=== PATIENT | female | born 1985 | race Caucasian/White ===

== ENCOUNTER 2016-10-07 11:39 | Emergency (ER) | payer BC ==
[~2016-10-07] VITALS: Ht 170.2 cm; Wt 82.0 kg
[~2016-10-07 11:39] MED LIST: HYDR-3580 PO; NAPR550 PO; Z.0.BCPILL PO
[2016-10-07 11:43] VITALS: BP 143/99; PULSE 94; RESP 14; TEMP 98.1; O2SAT 100
--- NOTE | 2016-10-07 12:00 | PD ---
Physical Exam Time Seen by Provider: 11:58 Narrative G1 31 y/o female who is 6.5 weeks based on LMP presents with lightheadedness, nausea, paresthesias, sob at work today for one hour. Vital signs reviewed. Seen at triage desk. Awaiting bed placement. Data Data Last Documented VS Vital Signs Date Time Temp Pulse Resp B/P Pulse Ox O2 Delivery O2 Flow Rate FiO2 10/07/16 11:43 98.1 94 14 143/99 100 MDM Medical Record Reviewed: Yes Supervised Visit with DARSHANA: Andrea Zamora Oct 07, 2016 12:00
[2016-10-07 12:43] LABS: BASOPHIL % 0.4 % (0.0-2.0); HEMATOCRIT 40.1 % (35.0-46.0); HEMO FLAGS DIFF FINAL; LYMPH % 16.6 % (9.0-44.0); MEAN CELL VOLUME 80.8 FL (80.0-100.0); MEAN CORPUSCULAR HEMOGLOBIN 26.9 PG (27.0-34.0); MEAN CORPUSCULAR HGB CONC 33.3 % (32.0-36.0); MONO % 6.1 % (0.0-8.0); NEUT % 76.9 % (16.0-70.0); PLATELET COUNT 232 TH/MM3 (150-450); RED BLOOD COUNT 4.97 MIL/MM3 (4.00-5.30); WHITE BLOOD COUNT 11.7 TH/MM3 (4.0-11.0)
[2016-10-07 12:57] LABS: BACTERIA, URINE RARE /hpf; BLOOD, URINE NEG (NEG); COMMENT (UR) CULT NOT INDICATED; CULTURE IF INDICATED CULT NOT INDICATED; GLUCOSE,URINE NEG (NEG); KETONE, URINE NEG (NEG); MUCUS URINE FEW /lpf (OCC); NITRITE,URINE NEG (NEG); PH, URINE 6.5 (5.0-8.5); SQUAMOUS EPITHELIAL CELL URINE 2 /hpf (0-5); URINE COLOR YELLOW (YELLW/STRAW)
[2016-10-07] MEDS ORDERED: SODIUM CHLOR 0.9% 1000 ML INJ 1,000 ML IV ONE (13:15)
[2016-10-07 13:16] VITALS: BP 112/65; PULSE 63; RESP 16; TEMP 99.3; O2SAT 98
--- NOTE | 2016-10-07 13:16 | PD ---
HPI Chief Complaint: Syncope/Near-Syncope Time Seen by Provider: 13:03 Travel History International Travel<30 days: No Contact w/Intl Traveler<30days: No Traveled to known affect area: No History of Present Illness HPI This is a 31-year-old female who is 6 weeks by dates presents to the emergency department with lightheadedness, dizziness and some shortness of breath that started at work today. She says she felt tingling in her hands and her feet at the time. It Lasted for several minutes and then subsided. She hasn't been eating and drinking well during her because she is very nauseous. She hasn't taken anything for this. She denies any fevers or chills , denies any abdominal pain or vaginal bleeding and denies any chest discomfort or shortness of breath currently. She's not had any calf swelling or pain. PFSH Past Medical History ?: Social History Alcohol Use: Yes (occasionally) Tobacco Use: No Substance Use: No Allergies-Medications (Allergen,Severity, Reaction): Coded Allergies: No Known Allergies (Unverified , 10/07/16) Reported Meds & Prescriptions Reported Meds & Active Scripts Active Reported Dha (Docosahexaenoic Acid) 200 Mg Cap 1 Tab PO DAILY Review of Systems Except as stated in HPI: all other systems reviewed are Neg Physical Exam Narrative GENERAL:Well appearing, no acute distress SKIN: Focused skin assessment warm and dry. HEAD: Atraumatic. Normocephalic. EYES: Pupils equal and round. No injection or drainage. ENT: Moist mucous membranes NECK: Trachea midline. CARDIOVASCULAR: Regular rate and rhythm. No murmur appreciated. RESPIRATORY: Clear to auscultation. Breath sounds equal bilaterally. GASTROINTESTINAL: Abdomen soft, non-tender, nondistended. MUSCULOSKELETAL: No obvious deformities. No Homans sign bilaterally. NEUROLOGICAL: Awake and alert. No obvious cranial nerve deficits. Moving all extremities. PSYCHIATRIC: Appropriate mood and affect; insight and judgment normal. Data Data Last Documented VS Vital Signs Date Time Temp Pulse Resp B/P Pulse Ox O2 Delivery O2 Flow Rate FiO2 10/07/16 13:16 16 98 Room Air 10/07/16 13:16 99.3 63 112/65 Orders Electrocardiogram (10/07/16 12:00) Complete Blood Count With Diff (10/07/16 12:00) Comprehensive Metabolic Panel (10/07/16 12:00) Ed Urine Pregnancytest Poc (10/07/16 12:00) Urinalysis - C+S If Indicated (10/07/16 12:00) Ed Poc Ultrasound (10/07/16 ) Sodium Chlor 0.9% 1000 Ml Inj (Ns 1000 M (10/07/16 13:15) Ondansetron Odt (Zofran Odt) (10/07/16 13:45) Labs Laboratory Tests Test 10/07/16 10/07/16 12:18 12:23 White Blood Count 11.7 TH/MM3 Red Blood Count 4.97 MIL/MM3 Hemoglobin 13.4 GM/DL Hematocrit 40.1 % Mean Corpuscular Volume 80.8 FL Mean Corpuscular Hemoglobin 26.9 PG Mean Corpuscular Hemoglobin 33.3 % Concent Red Cell Distribution Width 14.0 % Platelet Count 232 TH/MM3 Mean Platelet Volume 9.6 FL Neutrophils (%) (Auto) 76.9 % Lymphocytes (%) (Auto) 16.6 % Monocytes (%) (Auto) 6.1 % Eosinophils (%) (Auto) 0.0 % Basophils (%) (Auto) 0.4 % Neutrophils # (Auto) 9.0 TH/MM3 Lymphocytes # (Auto) 2.0 TH/MM3 Monocytes # (Auto) 0.7 TH/MM3 Eosinophils # (Auto) 0.0 TH/MM3 Basophils # (Auto) 0.0 TH/MM3 CBC Comment DIFF FINAL Differential Comment Sodium Level 137 MEQ/L Potassium Level 3.3 MEQ/L Chloride Level 102 MEQ/L Carbon Dioxide Level 25.8 MEQ/L Anion Gap 9 MEQ/L Blood Urea Nitrogen 7 MG/DL Creatinine 0.73 MG/DL Estimat Glomerular Filtration 93 ML/MIN Rate Random Glucose 87 MG/DL Calcium Level 9.2 MG/DL Total Bilirubin 0.8 MG/DL Aspartate Amino Transf 32 U/L (AST/SGOT) Alanine Aminotransferase 75 U/L (ALT/SGPT) Alkaline Phosphatase 75 U/L Total Protein 7.9 GM/DL Albumin 4.1 GM/DL Urine Color YELLOW Urine Turbidity CLEAR Urine pH 6.5 Urine Specific [place] 1.019 Urine Protein TRACE mg/dL Urine Glucose (UA) NEG mg/dL Urine Ketones NEG mg/dL Urine Occult Blood NEG Urine Nitrite NEG Urine Bilirubin NEG Urine Urobilinogen LESS THAN 2.0 MG/DL Urine Leukocyte Esterase NEG Urine RBC 1 /hpf Urine WBC 1 /hpf Urine Squamous Epithelial 2 /hpf Cells Urine Bacteria RARE /hpf Urine Mucus FEW /lpf Microscopic Urinalysis Comment CULT NOT INDICATED MDM Medical Decision Making Medical Screen Exam Complete: Yes Emergency Medical Condition: Yes Interpretation(s) Afebrile, heart rate is 94, mild hypertension Mild leukocytosis Mild hypokalemia Urinalysis: No infection EKG: Normal sinus rhythm with no ST changes Differential Diagnosis Arrhythmia, anemia, electrolyte abnormality, dehydration, pulmonary embolism Narrative Course This is a 31-year-old female who is 6 weeks who presents to the emergency department having felt lightheaded and dizzy earlier this morning. Symptoms have resolved. She is given Zofran here in the emergency department and drinking Gatorade without difficulty. She is a normal physical exam. Vital signs are reassuring with no hypoxia. Labs are reassuring and urinalysis is negative for infection or ketones. EKG is normal without arrhythmia. I did perform a bedside ultrasound which demonstrates yolk sac consistent with intrauterine . I suspect the patient's symptoms are in the setting of some mild dehydration due to poor oral intake in the setting of nausea in early . She will be discharged with Unisom and B-6. I did discuss with her the consideration of pulmonary embolism. She has no calf pain, is not hypoxic and not significantly tachycardic. She doesn't have any pleuritic chest pain. My suspicion is low and at this time I think the risk of testing outweighs the benefits however I told her if she develops new symptoms she should return to the emergency room. Procedures Procedure Narrative Ultrasound: Gestational sac visualized with yolk sac intrauterine Diagnosis Primary Impression: Nausea/vomiting in Patient Instructions: General Instructions Additional Instructions: If you develop severe or worsening abdominal pain, fever>100.4, persistent vomiting or inability to eat or drink return to the emergency department immediately. Follow up with your primary care physician in 2-3 days if your symptoms aren't improved. Med/Other Pt SpecificInfo: Prescription(s) given Scripts Doxylamine Succinate (Unisom Sleep Aid)25 Mg Tablet0.5 Tab PO HS PRN (NAUSEA) # 15 Prov:Daksha Sanches MD 10/07/16 Pyridoxine 25 Mg Tab25 Mg PO Q8HR PRN (NAUSEA) #20 TAB Ref 0 Prov:Daksha Sanches MD 10/07/16 Disposition: 01 DISCHARGE HOME Condition: Stable Daksha Sanches MD Oct 07, 2016 13:16
[2016-10-07] MEDS ORDERED: DOCO200C PO (13:25)
[2016-10-07 13:34] LABS: ANION GAP 9 MEQ/L (5-15); AST (GOT) 32 U/L (15-37); BICARBONATE 25.8 MEQ/L (21.0-32.0); BLOOD UREA NITROGEN 7 MG/DL (7-18); CHLORIDE 102 MEQ/L (98-107); GLOMERULAR FILTRATION RATE 93 ML/MIN (>89); POTASSIUM 3.3 MEQ/L (3.5-5.1); SODIUM (NA) 137 MEQ/L (136-145)
[2016-10-07 13:35] LABS: ALT (GPT) 75 U/L (10-53)
[2016-10-07 13:37] LABS: ALKALINE PHOSPHATASE 75 U/L (45-117); TOTAL BILIRUBIN ADULT 0.8 MG/DL (0.2-1.0)
[2016-10-07] MEDS ORDERED: ONDANSETRON ODT 4 MG TAB PO ONE (13:45)
[2016-10-07] MEDS ORDERED: UNIS25TA3 PO (14:00)
[2016-10-07] MEDS ORDERED: PYRI25TA2 PO (14:00)
--- NOTE | 2016-10-08 21:18 | EKG ---
Date Performed: 10/07/2016 Time Performed: 12:10:48 PTAGE: 31 years EKG: Sinus rhythm NORMAL ECG NO PREVIOUS TRACING DOCTOR: Ana Lilia Fraser Interpretating Date/Time 10/08/2016 21:14:08
== END 2016-10-07 14:32 | disposition home or self-care (01) ==
LOC: NEPD 11:39
DX: O21.9 Vomiting of pregnancy, unspecified (principal); Z3A.01 Less than 8 weeks gestation of pregnancy
CPT/HCPCS: 80053; 81001; 85025; 93005

== ENCOUNTER 2017-03-12 14:29 | Emergency (ER) | payer BC ==
[2017-03-12] VITALS (9 sets, daily range): BP systolic 114–125; BP diastolic 73–85; PULSE 90–104; RESP 17
[~2017-03-12 14:29] MED LIST changes: +DOCO200C PO; -HYDR-3580 PO; -NAPR550 PO; +PYRI25TA2 PO; +UNIS25TA3 PO; -Z.0.BCPILL PO
--- NOTE | 2017-03-12 15:53 | PD ---
HPI Chief Complaint Shortness of breath, fast heart rate, possibly elevated blood pressure Date Seen: Mar 12, 2017 Time Seen: 15:30 Travel History International Travel<30 Days: No Contact w/Intl Traveler<30Days: No Known Affected Area: No History of Present Illness HPI Patient is a 31-year-old at 20 weeks and 5 days who presents with shortness of breath, fast heart rate, possibly elevated blood pressure. She reports that the symptoms started on Friday with shortness of breath and tachycardia. She had the symptoms again on Friday. Friday she did not feel anything. This afternoon, she felt these symptoms again around 12:30. She says she felt like her heart was coming out of her chest and she could feel her pulse in her head. She works in a dentist's office. When she reported symptoms, they took her blood pressure and noticed that it was 138/110, then 137/106, with a pulse of 112. She thinks that her worry about her sister's previous pregnancies with preeclampsia may have elevated her blood pressure and pulse. The only other time she felt like this was at the beginning of her when she had a lot of nausea and vomiting and became dehydrated. History Past Medical History Medical History: Denies Significant Hx Obstetric History Obstetric History This is her first . It has been uncomplicated so far. Past Surgical History Surgical History: No Previous Surgery Family History Narrative Family History Patient's sister had preeclampsia in both of her previous pregnancies. Social History Narrative Social History Patient lives at home with her . Alcohol Use: No Tobacco Use: No Substance Abuse: No Allergies-Medications (Allergen,Severity, Reaction): Coded Allergies: No Known Allergies (Unverified , 10/07/16) Home Meds Active Scripts Doxylamine Succinate (Unisom Sleep Aid) 25 Mg Tablet, 0.5 TAB PO HS Y for NAUSEA , #15 Prov:Daksha Sanches MD 10/07/16 Pyridoxine (Pyridoxine) 25 Mg Tab, 25 MG PO Q8HR Y for NAUSEA, #20 TAB 0 Refills Prov:Daksha Sanches MD 10/07/16 Reported Medications Docosahexaenoic Acid ( Dha) 200 Mg Cap, 1 TAB PO DAILY 10/07/16 Review of Systems General / Constitutional: No: Fever, Chills Eyes: No: Visual changes HENT: No: Headaches Cardiovascular: Tachycardia, No: Chest Pain or Discomfort Respiratory: Short of Breath Gastrointestinal: No: Nausea, Vomiting, Abdominal Pain Genitourinary: No: Dysuria Physical Exam Pulse 105-119, blood pressure 135/85, 118/80, 125 over 80s Narrative GENERAL: Well-nourished, well-developed patient. SKIN: Warm and dry. HEAD: Normocephalic and atraumatic. EYES: No scleral icterus. No injection or drainage. ENT: No nasal drainage noted. Mucous membranes pink. Airway patent. NECK: Supple, trachea midline. No JVD. CARDIOVASCULAR: Regular rate and rhythm without murmurs, gallops, or rubs. RESPIRATORY: Breath sounds equal bilaterally. No accessory muscle use. ABDOMEN/GI: Abdomen soft, non-tender, bowel sounds present, no rebound, no guarding Gravid to 28 weeks size FHT's: Category: Category 1 Baseline: 150 Reactive: Reactive Variability: Moderate Decels: None EXTREMITIES: No cyanosis or edema. BACK: Nontender without obvious deformity. No CVA tenderness. NEUROLOGICAL: Awake and alert. Motor and sensory grossly within normal limits. Five out of 5 muscle strength in all muscle groups. Normal speech. Data Data Vital Signs Reviewed: Yes Orders Orders Vital Signs (Adult) .ON ADMISSION (03/12/17 15:37) ^ Labor Status (03/12/17 15:37) ^ Non Stress Test (03/12/17 15:37) ^ Hydration (03/12/17 15:37) Electrocardiogram (03/12/17 ) MDM Plan Patient is a 31-year-old at 20 weeks and 5 days who presents with shortness of breath, fast heart rate, possibly elevated blood pressure. She is currently asymptomatic and normotensive. 1. Shortness of breath, tachycardia, elevated blood pressure, HPI consistent with anxiety -EKG to ensure no arrhythmia -plan to discharge home -Serial blood pressures all normotensive -Currently asymptomatic and she declined medication for any of her symptoms -Monitor vitals -Monitor heart tracing -Monitor labor status/tocometry -Encourage by mouth hydration d/w Dr. Jovel Addendum: EKG showed sinus tachycardia with T-wave inversions in leads III, V1 and V2. No signs of arrhythmia. Plan to discharge home. Diagnosis Diagnosis: Primary Impression: SOB (shortness of breath) Additional Impression: Tachycardia Ruled Out: Preeclampsia Disposition: 01 DISCHARGE HOME Condition: Good James Candelario MD R2 Mar 12, 2017 15:53
--- NOTE | 2017-03-12 16:49 | EKG ---
Date Performed: 03/12/2017 Time Performed: 16:01:02 PTAGE: 31 years EKG: SINUS TACHYCARDIA NONSPECIFIC T-WAVE ABNORMALITY ABNORMAL RHYTHM ECG Compared to prior elec trocardiogram, rate has increased and Nonspecific T wave changes are now present . PREVIOUS TRACING : 10/07/2016 12.10 DOCTOR: Tres Martins Interpretating Date/Time 03/12/2017 16:49:03
== END 2017-03-12 16:45 | disposition home or self-care (01) ==
LOC: HOBED 14:29
DX: O26.892 Other specified pregnancy related conditions, second trimester (principal); R06.02 Shortness of breath; R00.0 Tachycardia, unspecified; Z3A.20 20 weeks gestation of pregnancy
CPT/HCPCS: 93005; 99284

== ENCOUNTER 2017-05-13 03:44 | Inpatient (IN) | payer BC ==
[2017-05-13] VITALS (55 sets, daily range): BP systolic 98–145; BP diastolic 48–103; PULSE 65–127; RESP 16–24; TEMP 98.1–99.7; O2SAT 96
[~2017-05-13] VITALS: Ht 162.6 cm; Wt 83.0 kg
[2017-05-13] MEDS ORDERED: OXYTOCIN 30 UNITS-500ML PREMIX 500 ML IV ONE (04:15)
[2017-05-13] MEDS ORDERED: CITRIC ACID-SODIUM CITRATE LIQ 30 ML UDC PO SCH (04:15)
[2017-05-13] MEDS ORDERED: LIDOCAINE HCL 1% 50 ML VIAL INFIL PRN (04:15)
[2017-05-13] MEDS ORDERED: ONDANSETRON HCL 4 MG/2 ML VIAL IV PUSH PRN (04:15)
[2017-05-13] MEDS ORDERED: LIDOCAINE HCL 1% 50 ML VIAL I-DERMAL PRN (04:15)
[2017-05-13] MEDS ORDERED: LACTATED RINGER'S 1000 ML INJ 1,000 ML IV PRN (04:15)
[2017-05-13] MEDS ORDERED: MINERAL OIL 10 ML VIAL TOPICAL PRN (04:15)
[2017-05-13] MEDS ORDERED: SODIUM CHLORID 0.9% 500 ML INJ 500 ML IV PRN (04:15)
[2017-05-13] MEDS: LACTATED RINGER'S 1000 ML INJ 1,000 ML IV SCH ×2 (04:15→06:27)
--- NOTE | 2017-05-13 04:15 | HHI.HP ---
HPI Chief Complaint water is leaking Date Seen: May 13, 2017 Time Seen: 04:00 Travel History International Travel<30 Days: No Contact w/Intl Traveler<30Days: No Known Affected Area: No History of Present Illness HPI Patient is a 32-year-old white female at 37-[address] Hernandez who presents with spontaneous rupture the membranes, amnio sure is positive, not really nkechi much she's had a few contractions but she doesn 't describe any pain to speak of. Baby is active heart rate tracing is reactive and the only minimal uterine irritability seen Weeks Gestation: 37 Para: 0 : 1 History Social History Alcohol Use: No Tobacco Use: No Substance Abuse: No Allergies-Medications (Allergen,Severity, Reaction): Coded Allergies: No Known Allergies (Unverified , 10/07/16) Home Meds Active Scripts Doxylamine Succinate (Unisom Sleep Aid) 25 Mg Tablet, 0.5 TAB PO HS Y for NAUSEA , #15 Prov:Daksha Sanches MD 10/07/16 Pyridoxine (Pyridoxine) 25 Mg Tab, 25 MG PO Q8HR Y for NAUSEA, #20 TAB 0 Refills Prov:Daksha Sanches MD 10/07/16 Reported Medications Docosahexaenoic Acid ( Dha) 200 Mg Cap, 1 TAB PO DAILY 10/07/16 Review of Systems General / Constitutional: No: Fever, Weight Gain, Chills, Other Eyes: No: Diploplia, Blurred Vision, Visual changes, Pain, Photophobia HENT: No: Headaches, Vertigo, Lightheadedness Cardiovascular: No: Irregular Rhythm, Chest Pain or Discomfort, Palpitations, Tachycardia, Syncope, Varicosities, Edema, Cyanosis Respiratory: No: Cough, Short of Breath, Other Gastrointestinal: No: Nausea, Vomiting, Diarrhea Genitourinary: No: Decreased Urinary Output, Oliguria Musculoskeletal: No: Limited ROM, Weakness, Cramping, Edema, Pain Skin: No Rash, No Itching, No Dryness, No Lumps, No Change in Pigmentation, No Change in Nails, No Alopecia, No Lesions Neurologic: No: Weakness, Dizziness, Syncope, Focal Abnormalities, Coordination Problem, Headache, Slurred Speech, Seizures Psychiatric: No: Depression, Suicidal Ideations, Homicidal Ideation Endocrine: No: Heat Intolerance, Cold Intolerance, Polydipsia, Polyuria, Other Physical Exam Narrative GENERAL: Well-nourished, well-developed patient. SKIN: Warm and dry. HEAD: Normocephalic and atraumatic. EYES: No scleral icterus. No injection or drainage. ENT: No nasal drainage noted. Mucous membranes pink. Airway patent. NECK: Supple, trachea midline. No JVD. CARDIOVASCULAR: Regular rate and rhythm without murmurs, gallops, or rubs. RESPIRATORY: Breath sounds equal bilaterally. No accessory muscle use. BREASTS: Bilateral exam showed no masses , no retractions, no nipple discharge. ABDOMEN/GI: Abdomen soft, non-tender, bowel sounds present, no rebound, no guarding Gravid to [37-] weeks size Fundal Height: [-37] GENITOURINARY: External Genitalia: intact and normal in appearance BUS glands: [-] Cervix: [post-] Dilatation: [-3] Effacement: [-90] Station: [-2] Presentation: [vtx-] Membranes: [ ruptured] + amnisure Uterine Contractions: [irreg-] FHT's: Category: [1-] Baseline: [-133] Reactive: [-R] Variability: [mod-] Decels: [-none] EXTREMITIES: No cyanosis or edema. BACK: Nontender without obvious deformity. No CVA tenderness. NEUROLOGICAL: Awake and alert. Motor and sensory grossly within normal limits. Five out of 5 muscle strength in all muscle groups. Normal speech. Caprini VTE Risk Assessment Caprini VTE Risk Assessment: No/Low Risk (score <= 1) Caprini Risk Assessment Model Point Value = 1 Point Value = 2 Point Value = 3 Point Value = 5 Age 41-60 Minor surgery BMI > 25 kg/m2 Swollen legs Varicose veins or History of unexplained or recurrent spontaneous Oral contraceptives or hormone replacement Sepsis (< 1 month) Serious lung disease, including pneumonia (< 1 month) Abnormal pulmonary function Acute myocardial infarction Congestive heart failure (< 1 month) History of inflammatory bowel disease Medical patient at bed rest Age 61-74 Arthroscopic surgery Major open surgery (> 45 min) Laparoscopic surgery (> 45 min) Malignancy Confined to bed (> 72 hours) Immobilizing plaster cast Central venous access Age >= 75 History of VTE Family history of VTE Factor V Leiden Prothrombin [id number] Lupus anticoagulant Anticardiolipin antibodies Elevated serum homocysteine Heparin-induced thrombocytopenia Other congenital or acquired thrombophilia Stroke (< 1 month) Elective arthroplasty Hip, pelvis, or leg fracture Acute spinal cord injury (< 1 month) Prophylaxis Regimen Total Risk Factor Score Risk Level Prophylaxis Regimen 0-1 Low Early ambulation 2 Moderate Order ONE of the following: *Sequential Compression Device (SCD) *Heparin 5000 units SQ BID 3-4 Higher Order ONE of the following medications: *Heparin 5000 units SQ TID *Enoxaparin/Lovenox 40 mg SQ daily (WT < 150 kg, CrCl > 30 mL/min) *Enoxaparin/Lovenox 30 mg SQ daily (WT < 150 kg, CrCl > 10-29 mL/min) *Enoxaparin/Lovenox 30 mg SQ BID (WT < 150 kg, CrCl > 30 mL/min) AND/OR *Sequential Compression Device (SCD) 5 or more Highest Order ONE of the following medications: *Heparin 5000 units SQ TID (Preferred with Epidurals) *Enoxaparin/Lovenox 40 mg SQ daily (WT < 150 kg, CrCl > 30 mL/min) *Enoxaparin/Lovenox 30 mg SQ daily (WT < 150 kg, CrCl > 10-29 mL/min) *Enoxaparin/Lovenox 30 mg SQ BID (WT < 150 kg, CrCl > 30 mL/min) AND *Sequential Compression Device (SCD) Data Data Group B Strep: Negative Assessment/Plan Assessment and Plan Patient is 32-year-old white female at 37-38 weeks presents with spontaneous ruptured membranes. Amnio sure is positive on OB ED, heart rate tracing is reactive and only irregular contractions noted minimally, cervix is 3/90/- -2/ vtx. Patient sees Dr. Hernandez for care Impression-SROM at 37-38 weeks Plan-admit to labor and delivery, augment contractions, labor management anticipate vaginal delivery Kang Can II, MD May 13, 2017 04:14
[2017-05-13] MEDS ORDERED: PRENTAB7 (04:28)
[2017-05-13 04:30] LABS: BACTERIA, URINE OCC /hpf; BILIRUBIN, URINE NEG (NEG); BLOOD, URINE SMALL (NEG); GLUCOSE,URINE NEG (NEG); HYALINE CAST, URINE 1 /lpf (RARE); KETONE, URINE NEG (NEG); MUCUS URINE FEW /lpf (OCC); NITRITE,URINE NEG (NEG); SQUAMOUS EPITHELIAL CELL URINE 12 /hpf (0-5); URINE COLOR LIGHT-YELLOW (YELLW/STRAW); URINE LEUKOCYTE ESTERASE NEG (NEG)
[2017-05-13] MEDS ORDERED: OXYTOCIN 30 UNITS-500ML PREMIX 500 ML IV SCH ×2 (04:30→14:30)
[2017-05-13] MEDS ORDERED: SODIUM CHLOR 0.9% 1000 ML INJ 1,000 ML IV PRN (04:35)
[2017-05-13 04:43] LABS: AUTOMATED NEUTROPHIL # 7.7 TH/MM3 (1.8-7.7); BASOPHIL % 0.4 % (0.0-2.0); EOSINOPHIL # 0.1 TH/MM3 (0-0.4); EOSINOPHIL % 0.6 % (0.0-4.0); HEMATOCRIT 35.4 % (35.0-46.0); HEMOGLOBIN 12.3 GM/DL (11.6-15.3); LYMPH % 20.2 % (9.0-44.0); LYMPHOCYTE # 2.2 TH/MM3 (1.0-4.8); MEAN CELL VOLUME 79.4 FL (80.0-100.0); MEAN CORPUSCULAR HEMOGLOBIN 27.6 PG (27.0-34.0); MEAN CORPUSCULAR HGB CONC 34.8 % (32.0-36.0); MEAN PLATELET VOLUME 9.5 FL (7.0-11.0); MONO % 7.9 % (0.0-8.0); MONOCYTE # 0.9 TH/MM3 (0-0.9); NEUT % 70.9 % (16.0-70.0); PLATELET COUNT 242 TH/MM3 (150-450); RED BLOOD COUNT 4.46 MIL/MM3 (4.00-5.30); WHITE BLOOD COUNT 10.8 TH/MM3 (4.0-11.0)
[2017-05-13] MEDS ORDERED: fentaNYL 2MCG-BUPIV 0.125% INJ 100 ML ONE (05:52)
[2017-05-13] MEDS ORDERED: NO SYSTEM NARCOTICS PRN (06:10)
[2017-05-13] MEDS ORDERED: fentaNYL 2MCG-BUPIV 0.125% 100 ML EPIDURAL SCH (06:10)
[2017-05-13] MEDS ORDERED: DO NOT ADMINISTER ANTICOAGULANTS PRN (06:10)
[2017-05-13] MEDS ORDERED: ePHEDrine/NS 25 MG/5 ML SYRINGE IV PUSH PRN (06:45)
--- NOTE | 2017-05-13 07:55 | PD.LABORPN ---
Subjective Subjective patient doing well. GBS negative in labor Objective Vital Signs Vital Signs Date Time Temp Pulse Resp B/P (MAP) Pulse Ox O2 Delivery O2 Flow Rate FiO2 05/13/17 07:13 98.1 05/13/17 07:10 73 05/13/17 07:08 20 05/13/17 07:05 71 05/13/17 07:01 65 118/69 (85) 05/13/17 07:00 67 05/13/17 06:46 77 101/59 (73) 05/13/17 06:45 72 05/13/17 06:45 20 05/13/17 06:40 75 05/13/17 06:36 105 105/57 (73) 05/13/17 06:35 79 05/13/17 06:30 78 05/13/17 06:30 77 107/67 (80) 05/13/17 06:30 20 05/13/17 06:28 20 05/13/17 06:26 85 103/48 (66) 05/13/17 06:21 82 98/58 (71) 05/13/17 06:20 80 05/13/17 06:16 83 110/68 (82) 05/13/17 06:15 83 05/13/17 06:15 22 05/13/17 06:11 82 122/84 (97) 05/13/17 06:10 77 05/13/17 06:07 74 126/83 (97) 05/13/17 06:05 81 05/13/17 06:02 79 145/90 (108) 05/13/17 05:52 18 Objective Pelvic Exam: Cervix: [-] Dilatation: 5 Effacement: [-] Station: [-] Presentation: vtx Membranes: SROM Uterine Contractions: [-] FHT's: Category: 1 Baseline: [-] Reactive: [-] Variability: [-] Decels: [-] Weeks Gestation: 37 Gest Age Assessed Date: May 13, 2017 Gest Age Assessed Time: 02:00 Pt started active labor?: Yes Active labor start date: May 13, 2017 Active labor start time: 02:00 Medical induction of labor?: No Artificial rupture of membrane: No Assessment/Plan Problem List: (1) 37 weeks gestation of ICD Codes: Z3A.37 - 37 weeks gestation of Bharat Andino MD May 13, 2017 07:55
[2017-05-13] MEDS ORDERED: LIDOCAINE HCL 1% 20 ML VIAL ONE (13:22)
[2017-05-13] MEDS ORDERED: MISOPROSTOL 200 MCG TAB ONE (14:12)
[2017-05-13] MEDS ORDERED: CARBOPROST TROMETHAMINE 250 MCG/ML VIAL ONE (14:13)
[2017-05-13] MEDS ORDERED: METHYLERGONOVINE MALEATE 0.2 MG/ML VIAL ONE (14:13)
--- NOTE | 2017-05-13 14:27 | PD.OB.DELI ---
Weeks gestation: 37 Gest age assessed date: May 13, 2017 Gest age assessed time: 02:00 Pt started active labor?: Yes Active labor start date: May 13, 2017 Active labor start time: 02:00 Medical induction of labor?: No Artificial rupture of membrane: No Anesthesia: Epidural Episiotomy: Right mediolateral Vaginal Delivery: Normal, Spontaneous Presentation: Occiput anterior Nuchal Cord: x1 Delayed cord clamping (45 sec): Yes Infant: Female, Single Delivery date: May 13, 2017 Delivery time: 14:01 One Minute : 8 Five Minute : 9 Weight: 5#13 oz Placenta: Spontaneous delivery, Intact, 3 vessel cord Laceration: Vaginal laceration, 2 deg Repair: Chromic running Bharat Andino MD May 13, 2017 14:27
[2017-05-13] MEDS ORDERED: SODIUM CHLORIDE 0.9% FLUSH 10 ML FLUSH IV FLUSH PRN (14:30)
[2017-05-13] MEDS ORDERED: ACETAMINOPHEN 325 MG TAB PO PRN (14:30)
[2017-05-13] MEDS ORDERED: oxyCODONE/ACETAMINOPHEN 5 MG/325 MG TAB PO PRN ×2 (14:30)
[2017-05-13] MEDS ORDERED: ONDANSETRON ODT 4 MG TAB PO PRN (14:30)
[2017-05-13] MEDS ORDERED: ALUMINUM/MAGNESIUM/SIMETH 30 ML CUP PO PRN (14:30)
[2017-05-13] MEDS ORDERED: BENZOCAINE 20% TOPICAL SPRAY 60 ML CAN TOPICAL PRN (14:30)
[2017-05-13] MEDS ORDERED: WITCH HAZEL 50%/GLYCERIN 12.5% 40 PAD JAR TOPICAL PRN (14:30)
[2017-05-13] MEDS ORDERED: DIPHTH/TETANUS/ACEL PERTUSSIS (BOOSTER) 0.5 ML VIAL/PFS IM ONE (16:00)
[2017-05-13] MEDS ORDERED: MEASLES, MUMPS, RUBELLA VACCINE 0.5 ML VIAL SQ ONE (16:00)
[2017-05-13] MEDS: IBUPROFEN 800 MG TAB PO PRN (18:25)
[2017-05-13] MEDS: SODIUM CHLORIDE 0.9% FLUSH 10 ML FLUSH IV FLUSH SCH (21:00)
[2017-05-13] MEDS ORDERED: DOCUSATE SODIUM 50 MG/SENNA 8.6 MG TAB PO PRN (21:00)
[2017-05-13] MEDS ORDERED: ZOLPIDEM TARTRATE 5 MG TAB PO PRN (21:00)
[2017-05-14] MEDS: IBUPROFEN 800 MG TAB PO PRN ×3 (02:57→21:58)
[2017-05-14 08:00] VITALS: BP 115/72; PULSE 65; RESP 16; TEMP 97.9
--- NOTE | 2017-05-14 08:03 | HHI.OB ---
Subjective Post Day: 1 Remarks doing well Objective Vitals/I&O Vital Signs Date Time Temp Pulse Resp B/P (MAP) Pulse Ox O2 Delivery O2 Flow Rate FiO2 05/13/17 20:00 67 18 119/77 (91) 05/13/17 20:00 99.2 96 05/13/17 18:00 99.1 86 16 129/84 (99) 05/13/17 16:59 71 120/77 (91) 05/13/17 15:46 75 122/89 (100) 05/13/17 15:31 75 110/59 (76) 05/13/17 15:16 79 127/82 (97) 05/13/17 15:01 81 112/49 (70) 05/13/17 14:54 18 05/13/17 14:48 99.7 05/13/17 14:46 97 129/89 (102) 05/13/17 14:40 18 05/13/17 14:32 87 118/72 (87) 05/13/17 14:25 18 05/13/17 14:16 111 130/60 (83) 05/13/17 14:07 91 123/78 (93) 05/13/17 14:01 127 130/103 (112) 05/13/17 13:31 68 124/69 (87) 05/13/17 13:01 92 126/74 (91) 05/13/17 12:52 24 05/13/17 12:50 98.4 05/13/17 12:45 24 05/13/17 12:31 104 128/72 (90) 05/13/17 12:01 86 127/79 (95) 05/13/17 11:31 82 117/70 (86) 05/13/17 11:01 86 119/67 (84) 05/13/17 10:31 89 118/78 (91) 05/13/17 10:01 79 112/71 (85) 05/13/17 09:31 75 115/84 (94) 05/13/17 09:30 18 05/13/17 09:27 98.3 05/13/17 09:01 82 114/71 (85) 05/13/17 08:31 79 109/67 (81) 05/13/17 08:12 20 Objective Remarks GENERAL: Well-nourished, well-developed patient. . ABDOMEN/GI: Abdomen soft, non-tender. Fundus: Firm, non-tender at umbilicus. GENITOURINARY: Light to moderate bleeding. EXTREMITIES: No cyanosis or edema, non-tender, without signs of DVT. Medications and IVs Current Medications Medications (Trade) Dose Ordered Sig/Doron Route Start Time Stop Time Status Last Admin Lactated Ringer's 1,000 ml @ 125 mls/hr Q8H IV 05/13/17 04:15 05/13/17 06:27 Lactated Ringer's 1,000 ml @ 3,000 mls/hr Q20M PRN IV 05/13/17 04:15 05/13/17 13:30 Sodium Chloride 1,000 ml @ 100 mls/hr Q10H PRN IV 05/13/17 04:35 05/13/17 06:27 (Xylocaine 1% Inj (50 ml)) 0.1 ml UNSCH X1 PRN I-DERMAL 05/13/17 04:15 05/16/17 04:14 (Bicitra Liq) 30 ml DOSIMETRIST PO 05/13/17 04:15 05/17/17 04:14 (Zofran Inj) 4 mg Q6H PRN IV PUSH 05/13/17 04:15 (fentaNYL INJ) 50 mcg Q1H PRN IV PUSH 05/13/17 04:15 (fentaNYL INJ) 100 mcg Q1H PRN IV PUSH 05/13/17 04:15 05/13/17 04:55 (Xylocaine 1% Inj (50 ml)) 10 ml UNSCH X1 PRN INFIL 05/13/17 04:15 05/15/17 04:14 (Muri-Lube Oil) 10 ml UNSCH PRN TOPICAL 05/13/17 04:15 05/13/17 14:52 Oxytocin 500 ml @ 0 mls/hr TITRATE IV 05/13/17 04:30 05/13/17 09:59 Fentanyl/ Bupivacaine HCl 100 ml @ 12 mls/hr TITRATE EPIDURAL 05/13/17 06:10 05/13/17 12:52 (NS Flush) 2 ml BID IV FLUSH 05/13/17 21:00 (NS Flush) 2 ml UNSCH PRN IV FLUSH 05/13/17 14:30 (Tylenol) 650 mg Q4H PRN PO 05/13/17 14:30 (Motrin) 800 mg Q8H PRN PO 05/13/17 14:30 05/14/17 02:57 (Percocet 5-325 Mg) 1 tab Q4H PRN PO 05/13/17 14:30 (Percocet 5-325 Mg) 2 tab Q4H PRN PO 05/13/17 14:30 (Americaine 20% Top Spr) 1 spray Q4H PRN TOPICAL 05/13/17 14:30 05/13/17 18:27 (Tucks Pads) 1 applic QID PRN TOPICAL 05/13/17 14:30 05/13/17 18:27 (Janet-Colace) 2 tab Q12HR PRN PO 05/13/17 21:00 (Ambien) 5 mg HS PRN PO 05/13/17 21:00 (Mag-Al Plus Susp Liq) 15 ml Q8H PRN PO 05/13/17 14:30 (Zofran Odt) 4 mg Q6H PRN PO 05/13/17 14:30 Assessment/Plan Problem List: (1) 37 weeks gestation of ICD Codes: Z3A.37 - 37 weeks gestation of Assessment and Plan S/P doing well, requesting dc home Bharat Andino MD May 14, 2017 08:03
[2017-05-14] MEDS ORDERED: OXYC1TAB63 PO (08:07)
--- NOTE | 2017-05-14 08:07 | HHI.DCPOC ---
Discharge Care Plan Diagnosis: (1) 37 weeks gestation of Report Symptoms to Your Doctor -Temperature above 100.5 degrees -Redness, of incision or excessive or foul smelling drainage -Unusual pain or calf pain -Increased vaginal bleeding -Painful or difficulty urinating -Feelings of extreme sadness or anxiety after 2 weeks Goals to Promote Your Health * To prevent worsening of your condition and complications * To maintain your health at the optimal level Directions to Meet Your Goals Take your medications as prescribed Follow your dietary instruction Follow activity as directed Ensure plenty of rest for recovery Drink fluids for hydration Keep your appointments as scheduled Take your immunizations and boosters as scheduled If your symptoms worsen call your PCP, if no PCP go to Urgent Care Center or Emergency Room Smoking is Dangerous to Your Health. Avoid second hand smoke Call the 24-hour crisis hotline for domestic abuse at Bharat Andino MD May 14, 2017 08:07
--- NOTE | 2017-05-14 08:11 | HHI.DS ---
Admission Date May 13, 2017 at 04:13 Discharge Date: May 14, 2017 Admitting Diagnosis Diagnosis: (1) Spontaneous vaginal delivery Diagnosis: Principal ICD Codes: O80 - Encounter for full-term uncomplicated delivery Delivery Date: May 13, 2017 Vaginal Delivery: Normal, Spontaneous : Female, Single Brief History Patient is a 32-year-old white female at 37-[address] Hernandez who presents with spontaneous rupture the membranes, amnio sure is positive, not really nkechi much she's had a few contractions but she doesn 't describe any pain to speak of. Baby is active heart rate tracing is reactive and the only minimal uterine irritability seen Hospital Course doing well post Pt Condition on Discharge: Good Discharge Disposition: Discharge Home Discharge Instructions Diet Instructions: As Tolerated, No Restrictions Activities You Can Perform: Pelvic Rest Activities to Avoid: Driving for 24 hrs Follow up Referrals: [facility] - 2 Weeks @ [facility] with Bharat Andino MD New Medications: Oxycodone HCl/Acetaminophen (Oxycodone-Acetaminophen 5-325) 5 Mg-325 Mg Tablet 1 TAB PO Q4H PRN for PAIN SCALE 3 TO 5, #20 TAB 0 Refills Bharat Andino MD May 14, 2017 08:11
[2017-05-14] MEDS: SODIUM CHLORIDE 0.9% FLUSH 10 ML FLUSH IV FLUSH SCH (21:00)
[2017-05-14 21:50] VITALS: BP 117/82; PULSE 81; RESP 16; TEMP 97.9
[2017-05-15] MEDS: LACTATED RINGER'S 1000 ML INJ 1,000 ML IV SCH (04:15)
[2017-05-15 08:00] VITALS: BP 129/89; PULSE 64; RESP 18; TEMP 98.4
== END 2017-05-15 17:37 | disposition home or self-care (01) | DRG 775 ==
LOC: HOBED 03:44 → H2EB 04:13 → H1EA 17:15
PROVIDERS: ADMIT Obstetrics & Gynecology; ATTEND Obstetrics & Gynecology
PROC: 10E0XZZ Delivery of Products of Conception, External Approach (ICD-10-PCS; principal; 2017-05-13)
PROC: 0KQM0ZZ Repair Perineum Muscle, Open Approach (ICD-10-PCS; 2017-05-13)
PROC: 0W8NXZZ Division of Female Perineum, External Approach (ICD-10-PCS; 2017-05-13)
PROC: 3E0R3BZ Introduction of Anesthetic Agent into Spinal Canal, Percutaneous Approach (ICD-10-PCS; 2017-05-13)
PROC: 00HU33Z Insertion of Infusion Device into Spinal Canal, Percutaneous Approach (ICD-10-PCS; 2017-05-13)
DX: O42.02 Full-term premature rupture of membranes, onset of labor within 24 hours of rupture (principal); O70.1 Second degree perineal laceration during delivery; Z37.0 Single live birth; Z3A.37 37 weeks gestation of pregnancy
CPT/HCPCS: 59025; 80307; 81001; 84112; 85025; 86900; 86901; 90715; J2210; J2590; J3010; J7030; J7120